=== PATIENT | female | born 1960 | race Caucasian/White ===

== ENCOUNTER → 2018-12-24 14:25 | Outpatient (CLI) | payer BC, SELFPAY ==
[2018-12-24 15:58] LABS: Estradiol 34.7 pg/mL; Follicle Stimulating Hormone 21.3 mIU/mL
[2018-12-24 16:07] LABS: Progesterone Level 0.06 ng/mL (See Comment)
[2018-12-29 11:29] LABS: HPV Reflexed? NOT INDICATED
== END ==
PROVIDERS: Visit Provider Obstetrics & Gynecology
DX: N95.0 Postmenopausal bleeding (principal); Z12.4 Encounter for screening for malignant neoplasm of cervix
CPT/HCPCS: 36415; 82670; 83001; 84144; 84403; 88175; G0145

== ENCOUNTER 2019-01-04 11:41 | Day surgery (SDC) | payer BC, SELFPAY ==
--- NOTE | 2019-01-03 16:27 | HP.PCM_ITS ---
History of Present Illness Date of Admission: 01/04/19 Chief Complaint: 58 year old presents with postmenopausal bleeding. Ultrasound reveals thickened endometrium. Notation of elevated HgA1C on pcp serum studies. 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 Lives: Spouse/ Significant Other Smoking Status: Never smoker Tobacco Use: Non-smoker Review of Systems Constitutional: Denies: Chills, Fever, Weight Change HEENT: Denies: Difficulty Hearing, Difficulty Swallowing, Nasal bleeding, Nasal Congestion, Sore Throat Cardiovascular: Denies: Chest Pain, Palpitations Respiratory: Denies: Shortness of Breath, Wheezing Gastrointestinal: Denies: Constipation, Diarrhea, Nausea, Vomiting Genitourinary: Denies: Dysuria, Frequency, Hematuria, Incontinence, Urgency Musculoskeletal: Denies: Joint Pain, Muscle pain Skin: Denies: Lesions, Skin Changes Neurological: Denies: Focal weakness, Numbness Psychiatric: Denies: Anxiety, Depression Endocrine: Denies: Heat/ Cold Intolerance Hematologic/ Lymphatic: Denies: Easy Bleeding VTE Information - Inpt Only VTE Present on Admission: No VTE Mechan Device Prophylaxis: SCD's VTE Pharm Prophylaxis ordered?: No Reason prophylaxis not ordered:: Treatment Not Indicated Subjective: Female in no distress. She is 5ft, 4 inches and weighs 240 pounds. No ambulation issues. - Physical Exam General: No apparent distress, Well developed, Well nourished HEENT: PERRLA, EOMI, Normocephalic Oral: Moist Mucosa Neck: Supple Lungs: Clear to auscultation Cardiovascular: Regular rate, Regular Rhythm Abdomen: Bowel Sounds Present, Non Tender, Non-Distended Extremities: No edema, No Calf Tenderness Skin: No rashes Neurological: Cranial nerves II-XII grossly intact Psych/Mental Status: Normal Affect Assessment/Plan 1. Postmenopausal bleeding Ultrasound reveals thickened endometrium. Recommendation for D and C, hysteroscopy - the preop preparation, the intraop procedures and the postop recovery reviewed. The risks of bleeding, infection and other organ damage including bladder, bowel and uterine perforation reviewed, accepted and consented. 2. Elevated HgA1C results for December, are 6.0
[2019-01-04] VITALS (7 sets, daily range): BP systolic 114–130; BP diastolic 62–75; PULSE 76–81; RESP 14–18; TEMP 36.2–37.2; O2SAT 92–99; BMI 40.9
[2019-01-04 12:20] LABS: Internal QC Validated? YES +Cl - CLEAR BKGD; Pregnancy, Urine Negative Negative
[2019-01-04 12:39] LABS: Hematocrit 42.2 % (37-47); Hemoglobin 13.1 g/dl (12.0-15.0); Mean Corpuscular Hgb 27.9 pg (27.0-32.0); Platelet Count 273 K/mm3 (150-450); RBC Distribution Width CV 13.9 % (11.6-14.6); RBC Distribution Width SD 45.3 fl (35.1-43.9); Red Blood Count 4.69 M/mm3 (4.2-5.4); White Blood Count 6.5 K/mm3 (4.4-11.0)
[2019-01-04 12:43] LABS: Scan Indicated on CBC? Y/N NO
[2019-01-04 12:52] LABS: Partial Thromboplast Time 28.5 Seconds (24.1-36.2); Prothrombin Time (Protime)PT. 13.4 SECONDS (11.7-14.9)
--- NOTE | 2019-01-04 14:15 | EMB_PTH ---
PATIENT: MILES ALEMAN LOC: [facility] [place] U#:[id number] AGE/SX: 58/F ROOM: RE01/04/[address]: Dr. Ursula Briseno MD : 1960 BED: DIS: 01/04/2019 SPEC #: [id number] RECD: 01/05/19 07:49 STATUS: NELI TURNER #: [id number] BUTCH: 01/04/19 14:[address]: Ursula Briseno DEPT: SURGICAL PATHOLOGY RECD BY: Bladimir Pretty ENTERED: 01/05/19 13:02 SP TYPE: ENDOM BX/C OTHR DR: Dr. Lorenza Hong MD Tissues: Endometrium, NOS Procedures: Surgery Specimen Level IV HEADER OPERATION: Hysteroscopy, dilation and curettage PRE-OP DIAGNOSIS: Postmenopausal bleeding TISSUE SUBMITTED: Endometrium MICROSCOPIC DIAGNOSIS Endometrium, curettings: Weakly proliferative to inactive endometrium with focal minimal stromal breakdown. Rare strips of benign superficial endocervix. AM:rg 3/28/19 COMMENT Case has been reviewed in consultation with Dr. Patel who concurs with the above diagnosis. IDC:KIM MICROSCOPIC DESCRIPTION Slides are reviewed. GROSS DESCRIPTION Received in fixative is one container labeled with the patient's name and designated endometrium. The specimen consists of multiple fragments of hemorrhagic soft tissue that in aggregate measure 2.5 x 2 x 0.2 cm. The specimen is totally submitted in one cassette. / SJ:farhad 01/05/19 TC:5 CPT: 62435
--- NOTE | 2019-01-04 14:49 | PCM.OPRPT ---
Problem List (1) Postmenopausal bleeding Status: Acute Report of Operation Date of Procedure: 01/04/19 Pre-Operative Diagnosis: Postmenopausal bleeding Post-Operative Diagnosis: Same plus thickened endometrium Surgery/Procedure Performed:: DMC, diagnostic hysteroscopy Description of Surgical Findings:: Uterus was noted to be in a retroflexed position and measured or sounded to approximately 9 cm. The uterus was fully mobile and bilateral adnexal regions were benign. Cervical os was easily dilated to accommodate a 5 mm hysteroscope. Type of Anesthesia:: Local, MAC Anesthesiologist: Cb Etienne Special Medications: 1% lidocaine, 10 cc placed to the cervix. Cefotetan 2 g IV preoperatively Specimen's removed: Endometrium Drains: None Estimated Blood Loss (mL): Minimal Fluids Replaced: Lactated Ringer Description of Procedure: Patient was brought into the operating suite. Patient was placed on the operating room table. Patient underwent a MAC anesthetic, placed. Once the MAC anesthetic was found to be adequate she was placed in dorsal lithotomy position via the Murtaza stirrups. Patient was prepped and draped in normal sterile fashion. Patient underwent a timeout for the second time upon entering the room at which time we proceeded with the weight has become to the vaginal vault area. The anterior lip of cervix was grasped and elevated. To 10 cc of 1% lidocaine placed to the 4 quadrants of the cervix. Uterus was sounded to the 9 cm in the retroflexed position. The cervical os was then easily dilated with Hegar dilators. These hysteroscope was assembled and placed into the endometrial cavity with notation of the majority of the tissue being on the posterior portion of the uterus. The hysteroscope was removed followed by sharp curettage of the entire endometrial cavity. This endometrial tissue was then assembled and sent away for pathological evaluation. Placing the hysteroscope into the endometrial cavity once again it was noted that all tissue had in fact been removed. The hysteroscope was then removed from the vagina tenaculum sites were noted to be hemostatic and all instruments were removed from the vagina. The sponge and instrument counts were correct x2. The patient was awakened in stable condition to be taken to the recovery room. Grafts/Implants Used: None - Complications None - Admit VTE Documentation VTE Present on Admission: No VTE Mechan Device Prophylaxis: SCD's VTE Pharm Prophylaxis ordered?: No Reason prophylaxis not ordered:: Treatment Not Indicated
--- NOTE | 2019-01-04 14:55 | DCINST_ITS ---
Discharge Diet: No Restrictions, - - Increase water intake to a minimum of 100 cc daily times 1 week Discharge Activity: Return to Normal Activity, May Shower, May Take a Tub Bath - in 2 weeks. Return to work on:: 01/06/19 May shower in (days): 0 - Today May resume sexual activity in: 2 weeks Weight Bearing Status: Full weight bearing Lifting Restrictions: None Call your doctor if you observe: Fever of 101 or Higher, Inability to urinate, Inability to have a bowel movement, Using more than one pad per hour Additional Instructions: Ambulate frequently with periods of rest in between. Follow these instructions for a minimum of 1 week after surgery. Allergies/Adverse Reactions: Allergies shellfish derived Allergy (Verified 01/03/19 08:16) Nausea Medications to take at Discharge Ascorbic Acid [Vitamin C] 500 mg PO DAILY 01/03/19 RX: Ferrous Sulfate 325 mg PO DAILY 01/03/19 Terazosin HCl [Hytrin] 5 mg PO DAILY 01/03/19 Triamterene/Hydrochlorothiazid [Dyazide 37.5-25 Capsule] 1 each PO DAILY 01/03/19 Primary Care Physician: Lorenza Hong MD [Primary Care Provider] - Test Results: Test results from this visit will be discussed in further detail at your follow- up appointment, if applicable. Please Follow Up With: Ursula Briseno MD When: 2 weeks postop
== END 2019-01-04 16:50 | disposition home or self-care (01) ==
LOC: SDC 11:46 → AC 11:48
PROVIDERS: Family Provider Family Medicine; PCP Family Medicine; Referring Provider Obstetrics & Gynecology; Visit Provider Obstetrics & Gynecology
PROC: 0UDB8ZZ Extraction of Endometrium, Via Natural or Artificial Opening Endoscopic (ICD-10-PCS; CPT 58558; principal; 2019-01-04 14:05)
DX: N95.0 Postmenopausal bleeding (principal); R93.89 Abnormal findings on diagnostic imaging of other specified body structures; R73.09 Other abnormal glucose; D64.9 Anemia, unspecified
CPT/HCPCS: 00952; 58555; 81025; 85027; 85610; 85730; 86850; 86900; 88305; J7120; J2405

== ENCOUNTER → 2019-04-22 12:31 | Outpatient (CLI) | payer BC, SELFPAY ==
[2019-01-04 12:27] VITALS: BMI 40.9
[2019-04-22 13:41] LABS: Estradiol 27.6 pg/mL
== END ==
PROVIDERS: Family Provider Family Medicine; PCP Family Medicine; Referring Provider Obstetrics & Gynecology; Visit Provider Obstetrics & Gynecology
DX: N95.0 Postmenopausal bleeding (principal)
CPT/HCPCS: 36415; 82670; 84144

== ENCOUNTER → 2020-04-30 14:45 | Outpatient (CLI) | payer BC, SELFPAY ==
[2019-01-04 12:27] VITALS: BMI 40.9
--- NOTE | 2020-04-30 14:55 | BI_ITS ---
MAMMOGRAPHY - BILATERAL SCREENING 3-D TOMOSYNTHESIS REASON FOR EXAM: Female, 59 years old. Routine screening PERTINENT HISTORY: NO FAM HX -- CURR HRT CR -- LT SEBACEOUS CYST REMOVED 10 YRS. AGO. TECHNIQUE: 2-D mammograms and 3-D Tomosynthesis of the breast (s) were performed. CAD was performed. COMPARISON: 02/11/2019 FINDINGS: The breast composition is almost entirely fat. Scattered benign calcifications are seen. No dense spiculated masses or suspicious microcalcifications are identified. No architectural distortion is identified. There is no skin thickening or retraction. There has been no significant change since the prior study. BI/SCREEN MAMM (CAD) W/TANA BILAT IMPRESSION: No mammographic signs of malignancy. Routine yearly mammograms recommended. ASSESSMENT CATEGORY: BIRADS Category 1: Negative. A letter regarding these results will be sent to the patient by the facility within 30 days. FOLLOW UP RECOMMENDATION: Yearly follow up mammogram recommended. (A) Approximately 10% of breast cancers are not detected by mammography. A normal mammogram should not delay biopsy of a clinically suspicious abnormality. Electronically Signed: Durga Madrigal MD at 15:55 EDT , Service support ,
== END ==
PROVIDERS: PCP Family Medicine; Referring Provider Family Medicine; Visit Provider Family Medicine
DX: Z12.31 Encounter for screening mammogram for malignant neoplasm of breast (principal)
CPT/HCPCS: 77063; 77067

== ENCOUNTER → 2021-05-22 15:53 | Outpatient (CLI) | payer BC, SELFPAY ==
[2019-01-04 12:27] VITALS: BMI 40.9
--- NOTE | 2021-05-22 15:57 | BI_ITS ---
MAMMOGRAPHY - BILATERAL SCREENING REASON FOR EXAM: Female, 60 years old. Routine annual screening examination. PERTINENT HISTORY: Non-contributory. TECHNIQUE: Digital bilateral breast tana (3D mammographic acquisition) in the CC and MLO projections. 2-D mediolateral oblique (MLO) and craniocaudad (CC) views of both breasts were obtained. CAD: Full Field Digital Mammography with Computer Added Detection was performed. COMPARISON: Comparison is made with prior study 04/30/2020. FINDINGS: Breast Composition: The breasts are almost entirely fatty. There are no dominant masses or suspicious calcifications. No other significant abnormalities are identified. There has been no significant change since the prior study. BI/SCRN MAMM (CAD)W/TANA BILAT IMPRESSION: Stable bilateral screening mammogram. Yearly follow-up mammogram recommended. (A) ASSESSMENT CATEGORY: BIRADS Category 1: Negative. A letter regarding these results will be sent to the patient by the facility within 30 days. Approximately 10% of breast cancers are not detected by mammography. A normal mammogram should not delay biopsy of a clinically suspicious abnormality. [id number] Electronically Signed: Thomas Talavera MD at 20:12 EDT , Service support ,
== END ==
PROVIDERS: PCP Family Medicine; Referring Provider Family Medicine; Visit Provider Family Medicine
DX: Z12.31 Encounter for screening mammogram for malignant neoplasm of breast (principal)
CPT/HCPCS: 77063; 77067

== ENCOUNTER → 2023-02-24 | Outpatient (CLI) | payer BC, SELFPAY ==
[2023-03-03 00:07] LABS: HPV APTIMA, High Risk Negative (Negative)
== END | disposition home or self-care (01) ==
LOC: LABSPEC 11:35
PROVIDERS: PCP Family Medicine; Visit Provider Student in an Organized Health Care Education/Training Program
DX: Z12.4 Encounter for screening for malignant neoplasm of cervix (principal)
CPT/HCPCS: 87624; 88175; G0145

== ENCOUNTER → 2023-03-13 | Outpatient (CLI) | payer BC, SELFPAY ==
--- NOTE | 2023-03-13 10:50 | EMB_PTH ---
PATIENT: MILES ALEMAN [facility] U#:[id number] AGE/SX: 62/F ROOM: RE03/13/[address]: Dr. Barbara Francisco DO : 1960 BED: DIS: 03/13/2023 SPEC #: [id number] RECD: 03/13/23 11:11 STATUS: NELI RE #: [id number] BUTCH: 03/13/23 10:[address]: Barbara Francisco DEPT: SURGICAL PATHOLOGY RECD BY: Julee Lees ENTERED: 03/13/23 11:19 SP TYPE: ENDOM BX/C GALDINO DR: Dr. Lorenza Hong MD Tissues: Endometrium, NOS Procedures: Surgery Specimen Level IV HEADER OPERATION: Endometrial biopsy PRE-OP DIAGNOSIS: Postmenopausal bleeding N95.0 TISSUE SUBMITTED: Endometrial biopsy MICROSCOPIC DIAGNOSIS Endometrium, biopsy: Scant strips of benign superficial endometrium and endocervix. AM:farhad 03/16/2023 MICROSCOPIC DESCRIPTION Slides are reviewed. GROSS DESCRIPTION Received in fixative is one container labeled with the patient's name and designated endometrial biopsy. The specimen consists of multiple irregular fragments of gibson mucoid tissue that in aggregate measure 1.5 x 0.5 x 0.1 cm. The specimen is totally submitted in one cassette. / SJ:farhad 03/13/2023 TC:5 CPT: 28471
== END | disposition home or self-care (01) ==
LOC: LABSPEC 11:03
PROVIDERS: PCP Family Medicine; Visit Provider Student in an Organized Health Care Education/Training Program
DX: N95.0 Postmenopausal bleeding (principal)
CPT/HCPCS: 88305